=== PATIENT | female | born 1950 | race Caucasian/White ===

== ENCOUNTER 2019-11-28 15:11 | Emergency (ER) | payer MEDICARE ==
[~2019-11-28] VITALS: Ht 172.7 cm; Wt 95.2 kg
[~2019-11-28 15:11] MED LIST: ASPI81EC PO; BENAML20/5 PO; CALCA500CH PO; DESV50 PO; MELA3; MULVITA PO; OMEP20ER; OXYC10ER PO; OXYC20ER PO; PREG75; ROSU5 PO
[2019-11-28] MEDS ORDERED: CEFP200 PO (17:01)
[2019-11-28] MEDS ORDERED: ONDA4ODT MM (17:01)
[2019-11-28] MEDS ORDERED: Norco 10-325 T1 EACH PO (17:01)
== END 2019-11-28 17:50 | disposition home or self-care (01) ==
LOC: ER 15:11
DX: S51.811A Laceration without foreign body of right forearm, initial encounter (principal); Z88.0 Allergy status to penicillin; Z88.8 Allergy status to other drugs, medicaments and biological substances; Z79.899 Other long term (current) drug therapy; Z23 Encounter for immunization; W31.89XA Contact with other specified machinery, initial encounter
CPT/HCPCS: 12002; 73090; 90471; 90714; 96365-59; 96366-59; 96375-59; 99283-25; J0690; J2060; J2405; J3010; J7030

== ENCOUNTER → 2019-12-06 | Outpatient (CLI) | payer MEDICARE ==
[~2019-12-06] MED LIST changes: +CEFP200 PO; +Norco 10-325 T1 EACH PO; +ONDA4ODT MM
== END | disposition home or self-care (01) ==
LOC: LAB SHORT 12:00 → LAB EV 12:00
DX: S41.111A Laceration without foreign body of right upper arm, initial encounter (principal)
CPT/HCPCS: 87070; 87075; 87205

== ENCOUNTER 2020-06-02 10:03 | Emergency (ER) | payer MEDICARE ==
[~2020-06-02] VITALS: Ht 172.7 cm; Wt 90.7 kg
[2020-06-02] MEDS ORDERED: BENA20 PO (10:32)
[2020-06-02] MEDS ORDERED: CELE200 PO (10:32)
[2020-06-02] MEDS ORDERED: ATOR20 PO (10:32)
[2020-06-02] MEDS ORDERED: MELATONIN5 M1 PO (10:33)
[2020-06-02] MEDS ORDERED: VENL150ER PO (10:34)
[2020-06-02] MEDS ORDERED: OMEP20ER PO (10:34)
[2020-06-02 10:38] LABS: BASOPHILS ABSOLUTE AUTO 0.03 K/mm3 (0.00-0.23); BASOPHILS PERCENT AUTO 0 % (0-2); EOSINOPHILS ABSOLUTE AUTO 0.05 K/mm3 (0.00-0.68); EOSINOPHILS PERCENT AUTO 1 % (0-6); Hematocrit 41.7 % (33.0-51.0); Hemoglobin 13.9 g/dL (11.5-16.0); IMMATURE GRAN ABSOLUTE AUTO 0.02 K/mm3 (0.00-0.10); IMMATURE GRAN PERCENT AUTO 0 % (0-1); LYMPHOCYTES ABSOLUTE AUTO 1.36 K/mm3 (0.84-5.20); LYMPHOCYTES PERCENT AUTO 19 % (21-46); MONOCYTES PERCENT AUTO 7 % (4-13); Mean Corpuscular HGB 30.5 pg (26.0-34.0); Mean Corpuscular HGB Conc 33.3 g/dL (31.5-36.5); Mean Corpuscular Volume 91 fL (80-100); Mean Platelet Volume 10.7 fL (9.1-12.4); NEUTROPHILS PERCENT AUTO 73 % (41-73); Platelet Count 193 K/mm3 (150-400); RDW Coefficient Variation 13.4 % (11.7-14.2); RDW Standard Deviation 45.7 fL (35.1-46.3); Red Blood Cell Count 4.56 M/mm3 (3.80-5.20); White Blood Cell Count 7.36 K/mm3 (4.00-11.30)
[2020-06-02 10:59] LABS: Alanine Aminotransfer (ALT/SGP 23 U/L (12-78); Albumin, Blood 3.6 g/dL (3.4-5.0); Albumin/Globulin Ratio 1.1 (0.8-1.8); Alk Phos 87 U/L (50-136); Anion Gap 10 mmol/L (6-16); Aspartate Aminotrans (AST/SGOT 17 U/L (12-37); Bilirubin, Total 0.6 mg/dL (0.1-1.0); Blood Urea Nitrogen 26 mg/dL (8-24); Bun/Creatinine Ratio 25.2 (12.0-20.0); CO2, Blood 22 mmol/L (21-32); Chloride, Blood 112 mmol/L (98-108); Creatinine, Blood 1.03 mg/dL (0.40-1.00); Globulin, Blood 3.2 g/dL (2.2-4.0); Glomerular Filtration Rate 56 (60-); Glucose, Blood 89 mg/dL (70-99); Magnesium, Blood 1.9 mg/dL (1.6-2.4); Potassium, Blood 3.9 mmol/L (3.5-5.5); Sodium, Blood 144 mmol/L (136-145); Total Protein, Blood 6.8 g/dL (6.4-8.2); Troponin I <0.015 ng/mL (0.000-0.040)
== END 2020-06-02 18:54 | disposition home or self-care (01) ==
LOC: ER 10:03
PROVIDERS: Emergency Medicine
DX: R07.89 Other chest pain (principal); F03.90 Unspecified dementia, unspecified severity, without behavioral disturbance, psychotic disturbance, mood disturbance, and anxiety; E78.00 Pure hypercholesterolemia, unspecified; Z88.0 Allergy status to penicillin; Z88.8 Allergy status to other drugs, medicaments and biological substances; Z79.899 Other long term (current) drug therapy
CPT/HCPCS: 71046; 80053; 83690; 83735; 84484; 85025; 93005; 93010; 99285-25

== ENCOUNTER → 2020-06-03 | Outpatient (CLI) | payer MEDICARE ==
[~2020-06-03] MED LIST changes: +ATOR20 PO; +Ativan1 MG PO; +BENA20 PO; +CELE200 PO; +CIPR500 PO; +MELATONIN5 M1 PO; +OMEP20ER PO; +QUET25 PO; +VENL150ER PO
== END | disposition home or self-care (01) ==
LOC: LAB EV 11:48 → LAB SHORT 11:48
DX: R30.9 Painful micturition, unspecified (principal)
CPT/HCPCS: 87086

== ENCOUNTER 2020-06-06 12:30 | Emergency (ER) | payer MEDICARE ==
[~2020-06-06] VITALS: Ht 172.7 cm; Wt 55.3 kg
[~2020-06-06 12:30] MED LIST changes: -Ativan1 MG PO; -CIPR500 PO; -QUET25 PO
[2020-06-06] MEDS ORDERED: CIPR500 PO (12:57)
[2020-06-06] MEDS ORDERED: QUET25 PO (12:58)
[2020-06-06] MEDS ORDERED: Ativan1 MG PO (14:44)
== END 2020-06-06 14:54 | disposition home or self-care (01) ==
LOC: ER 12:30
DX: F41.9 Anxiety disorder, unspecified (principal); F03.90 Unspecified dementia, unspecified severity, without behavioral disturbance, psychotic disturbance, mood disturbance, and anxiety; Z88.0 Allergy status to penicillin; Z88.8 Allergy status to other drugs, medicaments and biological substances; Z79.899 Other long term (current) drug therapy
CPT/HCPCS: 99284; A9270

== ENCOUNTER → 2020-07-02 | Outpatient (CLI) | payer MEDICARE ==
[~2020-07-02] MED LIST changes: +Ativan1 MG PO; +CIPR500 PO; +QUET25 PO
== END | disposition home or self-care (01) ==
LOC: LAB SHORT 16:40
DX: N39.0 Urinary tract infection, site not specified (principal)
CPT/HCPCS: 87086

== ENCOUNTER 2020-08-05 21:33 | Emergency (ER) | payer MEDICARE ==
[~2020-08-05] VITALS: Ht 167.6 cm; Wt 74.8 kg
[2020-08-05 23:02] LABS: BASOPHILS ABSOLUTE AUTO 0.05 K/mm3 (0.00-0.23); BASOPHILS PERCENT AUTO 1 % (0-2); EOSINOPHILS ABSOLUTE AUTO 0.07 K/mm3 (0.00-0.68); EOSINOPHILS PERCENT AUTO 1 % (0-6); Hematocrit 39.2 % (33.0-51.0); Hemoglobin 12.6 g/dL (11.5-16.0); IMMATURE GRAN ABSOLUTE AUTO 0.02 K/mm3 (0.00-0.10); IMMATURE GRAN PERCENT AUTO 0 % (0-1); LYMPHOCYTES ABSOLUTE AUTO 1.65 K/mm3 (0.84-5.20); LYMPHOCYTES PERCENT AUTO 26 % (21-46); MONOCYTES ABSOLUTE AUTO 0.44 K/mm3 (0.16-1.47); MONOCYTES PERCENT AUTO 7 % (4-13); Mean Corpuscular HGB 30.7 pg (26.0-34.0); Mean Corpuscular HGB Conc 32.1 g/dL (31.5-36.5); Mean Corpuscular Volume 95 fL (80-100); NEUTROPHILS ABSOLUTE AUTO 4.02 K/mm3 (1.96-9.15); NEUTROPHILS PERCENT AUTO 64 % (41-73); Platelet Count 163 K/mm3 (150-400); RDW Coefficient Variation 14.5 % (11.7-14.2); RDW Standard Deviation 50.2 fL (35.1-46.3); Red Blood Cell Count 4.11 M/mm3 (3.80-5.20); White Blood Cell Count 6.25 K/mm3 (4.00-11.30)
[2020-08-06 00:01] LABS: Albumin, Blood 3.7 g/dL (3.4-5.0); Albumin/Globulin Ratio 1.4 (0.8-1.8); Bilirubin, Total 0.6 mg/dL (0.1-1.0); Bun/Creatinine Ratio 22.3 (12.0-20.0); Calcium, Blood 8.6 mg/dL (8.5-10.1); Creatinine, Blood 1.03 mg/dL (0.40-1.00); Globulin, Blood 2.7 g/dL (2.2-4.0); Potassium, Blood 3.4 mmol/L (3.5-5.5); Total Protein, Blood 6.4 g/dL (6.4-8.2)
[2020-08-06 01:29] LABS: Source, Urine Clean Catch
[2020-08-06 01:32] LABS: Bilirubin, Urine Neg (Neg); Blood, Urine 1+ (Neg); Glucose Qualitative, Urine Neg (Neg); Ketones, Urine 2+ (Neg); Leukocyte Esterase, Urine 2+ (Neg); Nitrite, Urine Neg (Neg); Protein, Urine 1+ (Neg); Urobilinogen, Urine 1+ (Normal)
[2020-08-06 01:42] LABS: Appearance, Urine Hazy (Clear); Color, Urine Yellow (P-Yellow)
[2020-08-06 01:43] LABS: Amorphous Light (0-Heavy); Bacteria Many /hpf; Mucus Mod (0-Heavy); Red Blood Cells, Urine Rare /hpf (0-2); Squamous Epithelial Cells Many /hpf (Few); White Blood Cells, Urine 25-50 /hpf (0-5)
== END 2020-08-06 01:49 | disposition home or self-care (01) ==
LOC: ER 21:33
PROVIDERS: Physician Assistant
DX: F03.90 Unspecified dementia, unspecified severity, without behavioral disturbance, psychotic disturbance, mood disturbance, and anxiety (principal); E78.00 Pure hypercholesterolemia, unspecified; Z79.899 Other long term (current) drug therapy; Z88.0 Allergy status to penicillin; Z88.8 Allergy status to other drugs, medicaments and biological substances
CPT/HCPCS: 80053; 81001; 85025; 87086; 99283

== ENCOUNTER 2021-02-28 14:38 | Emergency (ER) | payer MEDICARE ==
[~2021-02-28] VITALS: Ht 172.7 cm; Wt 63.5 kg
[2021-02-28] MEDS ORDERED: ZOLOFT50 MG PO (15:01)
[2021-02-28] MEDS ORDERED: TEMAZEPAM PO (15:01)
[2021-02-28 16:15] LABS: BASOPHILS ABSOLUTE AUTO 0.03 K/mm3 (0.00-0.23); BASOPHILS PERCENT AUTO 0 % (0-2); EOSINOPHILS ABSOLUTE AUTO 0.03 K/mm3 (0.00-0.68); EOSINOPHILS PERCENT AUTO 0 % (0-6); Hematocrit 36.1 % (33.0-51.0); IMMATURE GRAN ABSOLUTE AUTO 0.02 K/mm3 (0.00-0.10); IMMATURE GRAN PERCENT AUTO 0 % (0-1); LYMPHOCYTES ABSOLUTE AUTO 1.32 K/mm3 (0.84-5.20); LYMPHOCYTES PERCENT AUTO 18 % (21-46); MONOCYTES ABSOLUTE AUTO 0.51 K/mm3 (0.16-1.47); MONOCYTES PERCENT AUTO 7 % (4-13); Mean Corpuscular HGB Conc 33.2 g/dL (31.5-36.5); Mean Corpuscular Volume 99 fL (80-100); Mean Platelet Volume 10.8 fL (9.1-12.4); NEUTROPHILS ABSOLUTE AUTO 5.42 K/mm3 (1.96-9.15); NEUTROPHILS PERCENT AUTO 74 % (41-73); Platelet Count 143 K/mm3 (150-400); RDW Standard Deviation 55.9 fL (35.1-46.3); Red Blood Cell Count 3.64 M/mm3 (3.80-5.20); White Blood Cell Count 7.33 K/mm3 (4.00-11.30)
[2021-02-28 16:34] LABS: Alanine Aminotransfer (ALT/SGP 18 U/L (12-78); Albumin, Blood 3.3 g/dL (3.4-5.0); Albumin/Globulin Ratio 1.2 (0.8-1.8); Alk Phos 44 U/L (50-136); Anion Gap 9 mmol/L (6-16); Aspartate Aminotrans (AST/SGOT 20 U/L (12-37); Bilirubin, Total 0.6 mg/dL (0.1-1.0); Blood Urea Nitrogen 20 mg/dL (8-24); Bun/Creatinine Ratio 24.9 (12.0-20.0); CO2, Blood 22 mmol/L (21-32); Chloride, Blood 114 mmol/L (98-108); Globulin, Blood 2.8 g/dL (2.2-4.0); Glomerular Filtration Rate >60 (60-); Glucose, Blood 97 mg/dL (70-99); Magnesium, Blood 1.9 mg/dL (1.6-2.4); Potassium, Blood 3.9 mmol/L (3.5-5.5); Sodium, Blood 145 mmol/L (136-145); Total Protein, Blood 6.1 g/dL (6.4-8.2); Troponin I <0.015 ng/mL (0.000-0.040)
== END 2021-02-28 17:15 | disposition home or self-care (01) ==
LOC: ER 14:38
PROVIDERS: Student in an Organized Health Care Education/Training Program
DX: R55 Syncope and collapse (principal); E86.0 Dehydration; F41.9 Anxiety disorder, unspecified; Z88.0 Allergy status to penicillin; Z88.8 Allergy status to other drugs, medicaments and biological substances; Z79.899 Other long term (current) drug therapy; M19.90 Unspecified osteoarthritis, unspecified site; E78.00 Pure hypercholesterolemia, unspecified; F03.90 Unspecified dementia, unspecified severity, without behavioral disturbance, psychotic disturbance, mood disturbance, and anxiety
CPT/HCPCS: 36415; 71046; 80053; 82947; 83735; 83880; 84484; 85025; 93005; 93010; 99284-25; A9270; J7030

== ENCOUNTER 2021-07-28 13:43 | Inpatient (IN) | payer MEDICARE ==
[~2021-07-28] VITALS: Ht 172.7 cm; Wt 49.0 kg
[~2021-07-28 13:43] MED LIST changes: +TEMAZEPAM PO; +ZOLOFT50 MG PO
[2021-07-28 14:49] LABS: BASOPHILS ABSOLUTE AUTO 0.04 K/mm3 (0.00-0.23); BASOPHILS PERCENT AUTO 1 % (0-2); EOSINOPHILS ABSOLUTE AUTO 0.14 K/mm3 (0.00-0.68); EOSINOPHILS PERCENT AUTO 3 % (0-6); Hematocrit 38.6 % (33.0-51.0); Hemoglobin 12.7 g/dL (11.5-16.0); IMMATURE GRAN PERCENT AUTO 0 % (0-1); LYMPHOCYTES ABSOLUTE AUTO 1.55 K/mm3 (0.84-5.20); LYMPHOCYTES PERCENT AUTO 32 % (21-46); MONOCYTES ABSOLUTE AUTO 0.39 K/mm3 (0.16-1.47); MONOCYTES PERCENT AUTO 8 % (4-13); Mean Corpuscular HGB 31.1 pg (26.0-34.0); Mean Corpuscular HGB Conc 32.9 g/dL (31.5-36.5); Mean Corpuscular Volume 95 fL (80-100); Mean Platelet Volume 10.3 fL (9.1-12.4); NEUTROPHILS ABSOLUTE AUTO 2.67 K/mm3 (1.96-9.15); NEUTROPHILS PERCENT AUTO 56 % (41-73); Platelet Count 217 K/mm3 (150-400); RDW Coefficient Variation 12.9 % (11.7-14.2); RDW Standard Deviation 44.1 fL (35.1-46.3); Red Blood Cell Count 4.08 M/mm3 (3.80-5.20); White Blood Cell Count 4.79 K/mm3 (4.00-11.30)
[2021-07-28 15:26] LABS: Alanine Aminotransfer (ALT/SGP 24 U/L (12-78); Albumin, Blood 3.6 g/dL (3.4-5.0); Alk Phos 73 U/L (50-136); Anion Gap 7 mmol/L (6-16); Aspartate Aminotrans (AST/SGOT 22 U/L (12-37); Bilirubin, Total 0.5 mg/dL (0.1-1.0); Blood Urea Nitrogen 25 mg/dL (8-24); Bun/Creatinine Ratio 33.1 (12.0-20.0); CO2, Blood 26 mmol/L (21-32); Calcium, Blood 9.2 mg/dL (8.5-10.1); Chloride, Blood 109 mmol/L (98-108); Creatinine, Blood 0.76 mg/dL (0.40-1.00); Globulin, Blood 3.6 g/dL (2.2-4.0); Glomerular Filtration Rate >60 (60-); Glucose, Blood 100 mg/dL (70-99); Potassium, Blood 3.6 mmol/L (3.5-5.5); Sodium, Blood 142 mmol/L (136-145); Total Protein, Blood 7.2 g/dL (6.4-8.2)
--- NOTE | 2021-07-29 04:35 | NUR ---
PT A & O TO SELF AND SITUATION. PT CONFUSED AT TIMES. HX OF DEMENTIA. NPO. BEDREST. IV TO R) WRIST; NS INFUSING AT 100 ML/HR PER ORDER. PT C/O HIP PAIN AND LOOKED ANXIOUS AND FEARFUL. PT GIVEN PRN FENTANYL IV FOR PAIN AND PO ATIVAN FOR ANXIETY PER EMAR. MEDS WHOLE WITH WATER. ORTHO CONSULT IN. WILL CONTINUE TO MONITOR.
--- NOTE | 2021-07-29 04:38 | NUR ---
PT ADMITTED FROM ER TO ROOM 309 ON 07/28/21 AT 2300. PT MOANING AND IN DISTRESS. PT C/O PAIN. PT ANXIOUS WELL. HIP PRECAUTIONS INITIATED. NO IV PRESENT. REPORT RECEIVED FROM ASCENCION LICONA RN.
[2021-07-29 05:09] LABS: BASOPHILS ABSOLUTE AUTO 0.06 K/mm3 (0.00-0.23); BASOPHILS PERCENT AUTO 1 % (0-2); EOSINOPHILS ABSOLUTE AUTO 0.15 K/mm3 (0.00-0.68); EOSINOPHILS PERCENT AUTO 3 % (0-6); Hematocrit 34.1 % (33.0-51.0); Hemoglobin 11.3 g/dL (11.5-16.0); IMMATURE GRAN ABSOLUTE AUTO 0.01 K/mm3 (0.00-0.10); IMMATURE GRAN PERCENT AUTO 0 % (0-1); LYMPHOCYTES ABSOLUTE AUTO 1.88 K/mm3 (0.84-5.20); LYMPHOCYTES PERCENT AUTO 41 % (21-46); MONOCYTES ABSOLUTE AUTO 0.44 K/mm3 (0.16-1.47); MONOCYTES PERCENT AUTO 10 % (4-13); Mean Corpuscular HGB Conc 33.1 g/dL (31.5-36.5); Mean Corpuscular Volume 93 fL (80-100); NEUTROPHILS ABSOLUTE AUTO 2.09 K/mm3 (1.96-9.15); NEUTROPHILS PERCENT AUTO 45 % (41-73); Platelet Count 180 K/mm3 (150-400); RDW Coefficient Variation 12.8 % (11.7-14.2); RDW Standard Deviation 43.9 fL (35.1-46.3); Red Blood Cell Count 3.65 M/mm3 (3.80-5.20); White Blood Cell Count 4.63 K/mm3 (4.00-11.30)
[2021-07-29 05:37] LABS: Alanine Aminotransfer (ALT/SGP 20 U/L (12-78); Albumin/Globulin Ratio 1.1 (0.8-1.8); Alk Phos 67 U/L (50-136); Anion Gap 6 mmol/L (6-16); Aspartate Aminotrans (AST/SGOT 16 U/L (12-37); Bilirubin, Total 0.5 mg/dL (0.1-1.0); Blood Urea Nitrogen 22 mg/dL (8-24); Bun/Creatinine Ratio 30.7 (12.0-20.0); CO2, Blood 26 mmol/L (21-32); Calcium, Blood 8.7 mg/dL (8.5-10.1); Chloride, Blood 113 mmol/L (98-108); Creatinine, Blood 0.72 mg/dL (0.40-1.00); Globulin, Blood 2.8 g/dL (2.2-4.0); Glomerular Filtration Rate >60 (60-); Glucose, Blood 91 mg/dL (70-99); Potassium, Blood 3.3 mmol/L (3.5-5.5); Sodium, Blood 145 mmol/L (136-145); Total Protein, Blood 5.8 g/dL (6.4-8.2)
--- NOTE | 2021-07-29 11:00 | NUR ---
CALLED FLOOR RN, REPORTS IV PULLED X2, WILL RESTART BEFORE HEADING BACK TO OR. NO COVID TEST ON CHART, PT'S FAMILY REPORTS VACCINATED BUT DOESN'T HAVE A COPY OF CARD, ORDERED STAT COVID TEST. FLOOR RN WILL OBTAIN NOW. NO ABX HAVE BEEN ORDERED PRE-OP, ORDERS PLACED ON CHART FOR DR. OSUNA.
--- NOTE | 2021-07-29 11:56 | NUR ---
NURSE NOTE PATIENT PULLED OUT IV THIS SHIFT. ATTEMPTED NEW IV START. DAY SURGERY CALLED AND CONFIRMED THEY WILL PUT IN NEW IV CLOSER TO SURGERY. PATIENT TRANSFERRED TO DAY SURGERY VIA BED. UNSURE IF PATIENT WILL TRANSFER BACK TO ROOM. PATIENT HAS HAD NO ACUTE EVENTS THIS SHIFT. VITAL SIGNS REVIEWED.
--- NOTE | 2021-07-29 12:06 | NUR ---
PT TO SDS FROM ROOM 309 VIA GURNEY. PT ABLE TO STAND AND USE COMMODE PRIOR TO SDS. IV STARTED. S/O REPORTS NPO SINCE LAST NOC. History, Chart, Medications and Allergies reviewed before start of procedure. Lungs clear T/O to Auscultation. INCREASED NECK PAIN, REPOSITIONED FOR COMFORT. AT BEDSIDE FOR CONSENT. SBAR TO ZAKIYA DOW .
[2021-07-29 12:35] LABS: SARS-Cov-2 (COVID-19) PCR, MMC NEGATIVE (NEGATIVE)
--- NOTE | 2021-07-29 13:56 | NUR ---
07/29/21 1356 Maurice Milan BRUISING FOUND ON PT INCLUDING RIGHT HIP AND RIGHT EYE.
--- NOTE | 2021-07-29 16:34 | NUR ---
SHIFT SUMMARY PT TRANSFERRED FROM 309 TO 214 POST SURGERY. PT STATUS POST FOR PINNING OF R HIP FOLLOWING A FALL AT HOME. PT HAS DEMENTIA BUT IS ABLE TO ANSWER SIMPLE QUESTIONS. GAUZE DRESSING TO R HIP CDI. AT THE BEDSIDE. VSS. IV WRAPPED TO KEEP PATIENT FROM PULLING IT OUT.
--- NOTE | 2021-07-30 05:39 | NUR ---
JITNEY DRIVER SUMMARY PATIENT A&O X2 BUT COOPERATIVE. VSS. SHE REFUSED PAIN MEDICATION AND DENIED PAIN, EXCEPT WHEN TRANSFERING TO BSC. PATIENT WAS ABLE TO VOID 300 ML OF DARK, CLOUDY, ODEROUS URINE. INCISION SITE C/D/I WITH SCANT DRAINAGE. PATIENT SLEPT MOST OF THE SHIFT. NO OTHER ACUTE CHANGES THIS SHIFT.
--- NOTE | 2021-07-30 11:02 | NUR ---
Pt. is awake and in bed. Pt. welcomes my visit. Pt. is pleasant, but mildly unsettled about her recovery status. With a calming presence and theraputic listening this juke box mechanic devlopes rapport with Pt. Pt. verbalizes that she desired to get an update from her medical team. Normalize the Pt. experience. Pt. displays evidence of trust and agreement. Prayed with Pt. Pt. verbalizes gratitude for the [facility].
--- NOTE | 2021-07-30 17:39 | NUR ---
SHIFT SUMMARY PT POD #1 FOR R HIP GAMMA NAILING. SHE IS WEIGHT BEARING TOLERATED TO THE BSC. SHE HAS DEMENTIA AND CAN BE CONFUSED BUT OVERALL IS PLEASANT. STERI STRIPD TO THE R HIP CDI. IS AT THE BEDSIDE WHICH HELPS WITH HER ANXIETY AND AGITATION. MEDICATED FOR PAIN THIS SHIFT PER EMR. VSS. WILL REPORT TO KELLIE RN.
--- NOTE | 2021-07-31 05:47 | NUR ---
PT A&O X2. VSS. PT SLIGHTLY AGITATED AT START OF SHIFT. SHE WAS MEDICATED WITH ATIVAN AND SEROQUIL, PER EMAR. STAYED AT BEDSIDE FOR SEVERAL HOURS TO COMFORT PT. PT HAS BEEN CALM AND COOPERATIVE SINCE. PT HAD A LOW GRADE FEVER EARLY IN SHIFT. SHE WAS MEDICATED WITH TYLENOL, AND HER TEMPERATURE RETURNED TO WNL. INCISION ON R HIP C/D/I WITHOUT DRAINAGE. NO OTHER ACUTE CHANGES THIS SHIFT.
--- NOTE | 2021-07-31 15:08 | NUR ---
SHIFT SUMMARY POD 2 RIGHT HIP NAILING PATIENT IS AXOX2 CAN BE MORE CONFUSED IN THE EVENING. BED ALARM AND TAB ALARM ARE ON. VS ARE WNL AND IS ON RA. PAIN IS MANAGED WITH PO TYLENOL. SHE IS A SBA WITH FWW AND GAIT BELT. RIGHT HIP HAS BANDAID THAT IS C/D/I. DENIES NUMBNESS AND TINGLING. SHE IS TOLERATING PO INTAKE AND IS VOIDING. ENCOURAGING BOWEL CARE AND INCREASING PO FLUIDS TO HOPEFULLY HAVE A BM. PATIENT IS CURRENTLY SITTING UP IN CHAIR WITH TAB ALARM ON. CALL LIGHT WITHIN REACH. SON AT BEDSIDE. THE PLAN IS TO CHECK LABS IN THE MORNING AND THEN TO POSSIBLY DISCHARGE TO SNF WHEN A BED BECOMES OPEN.
--- NOTE | 2021-07-31 16:12 | NUR ---
DISCHARGE NOTE: PATIENT WILL BE GOING TO [facility] TODAY. GAVE REPORT TO [facility] NURSE IGNACIA. PATIENT IS A&OX2 BUT IS COOPERATIVE. TAB ALARM IN PLACE AT THIS TIME SINCE SHE IS UP IN A CHAIR. HARD PERSCRIPTION IS IN FOLDER THAT WILL BE GOING TO [facility]. RIGHT HIP HAS A BANDAID OVER SURGICAL SITE THAT IS C/D/I. DENIES NUMBNESS AND TINGLING. SHE IS A SBA WITH FWW AND GAIT BELT. SHE IS TOLERATING PO INTAKE, VOIDING, AND HAD A SMALL SMEAR BM. FAMILY IS AWARE OF PATIENT GOING TO [facility]. SON AT BEDSIDE. CALL LIGHT WITHIN REACH. AWAITING TRANSPORT TO ARRIVE AT 1800 TO TAKE HER TO [facility].
--- NOTE | 2021-07-31 16:34 | NUR ---
SEE NEW DISCHARGE NOTE IN NURSES NOTES. PATIENT IS TO BE GOING TO [facility] WHEN TRANSPORT GETS HERE AT 1800.
[2021-07-31 16:42] LABS: SARS-Cov-2 (COVID-19) PCR, MMC NEGATIVE (NEGATIVE)
--- NOTE | 2021-07-31 18:03 | NUR ---
PATIENT IS DRESSED AND HAS ITEMS GATHERED FROM THE ROOM. TRANSPORT ARRIVED AND PATIENT IS IN A WHEELCHAIR AND GETTING TRANSPORTED TO [facility].
== END 2021-07-31 18:00 | DRG 956 ==
LOC: ER 13:43 → SURS 21:56 → MEDS 21:56 → SURS 07-29 13:12
PROVIDERS: Family Medicine; Internal Medicine; Orthopaedic Surgery; Physician Assistant; ADMIT Internal Medicine
PROC: 0QH634Z Insertion of Internal Fixation Device into Right Upper Femur, Percutaneous Approach (ICD-10-PCS; principal; 2021-07-29 12:30)
DX: S72.001A Fracture of unspecified part of neck of right femur, initial encounter for closed fracture (principal); S06.6X0A Traumatic subarachnoid hemorrhage without loss of consciousness, initial encounter; Z66 Do not resuscitate; G30.9 Alzheimer's disease, unspecified; F02.80 Dementia in other diseases classified elsewhere, unspecified severity, without behavioral disturbance, psychotic disturbance, mood disturbance, and anxiety; E87.6 Hypokalemia; Z20.822 Contact with and (suspected) exposure to COVID-19; M19.90 Unspecified osteoarthritis, unspecified site; E78.00 Pure hypercholesterolemia, unspecified; G89.29 Other chronic pain; F41.9 Anxiety disorder, unspecified; Z87.820 Personal history of traumatic brain injury; Z98.41 Cataract extraction status, right eye; Z98.42 Cataract extraction status, left eye; Z98.890 Other specified postprocedural states; Z88.0 Allergy status to penicillin; Z88.8 Allergy status to other drugs, medicaments and biological substances; Z79.899 Other long term (current) drug therapy; W18.39XA Other fall on same level, initial encounter
CPT/HCPCS: 36415; 73700; 80053; 85025; 97112; 97116; 97162; 97165; 97535; 99285-25; A9270; C1713; C1769; J0171; J0690; J1100; J1885; J2250; J2405; J2704; J3010; J7030; J7120; U0004

== ENCOUNTER 2022-09-14 13:02 | Observation (INO) | payer MEDICARE ==
[2022-09-14 15:20] LABS: BASOPHILS ABSOLUTE AUTO 0.03 K/mm3 (0.00-0.23); BASOPHILS PERCENT AUTO 0 % (0-2); EOSINOPHILS PERCENT AUTO 1 % (0-6); Hematocrit 38.4 % (33.0-51.0); Hemoglobin 12.8 g/dL (11.5-16.0); IMMATURE GRAN ABSOLUTE AUTO 0.02 K/mm3 (0.00-0.10); IMMATURE GRAN PERCENT AUTO 0 % (0-1); LYMPHOCYTES ABSOLUTE AUTO 1.17 K/mm3 (0.84-5.20); LYMPHOCYTES PERCENT AUTO 13 % (21-46); MONOCYTES ABSOLUTE AUTO 0.63 K/mm3 (0.16-1.47); MONOCYTES PERCENT AUTO 7 % (4-13); Mean Corpuscular HGB 30.9 pg (26.0-34.0); Mean Corpuscular HGB Conc 33.3 g/dL (31.5-36.5); Mean Corpuscular Volume 93 fL (80-100); Mean Platelet Volume 10.5 fL (9.1-12.4); NEUTROPHILS ABSOLUTE AUTO 7.27 K/mm3 (1.96-9.15); NEUTROPHILS PERCENT AUTO 79 % (41-73); Platelet Count 168 K/mm3 (150-400); RDW Coefficient Variation 12.4 % (11.7-14.2); RDW Standard Deviation 42.5 fL (35.1-46.3); Red Blood Cell Count 4.14 M/mm3 (3.80-5.20); White Blood Cell Count 9.22 K/mm3 (4.00-11.30)
[2022-09-14 15:44] LABS: Albumin, Blood 3.3 g/dL (3.4-5.0); Albumin/Globulin Ratio 0.9 (0.8-1.8); Bilirubin, Total 0.4 mg/dL (0.1-1.0); Bun/Creatinine Ratio 21.7 (12.0-20.0); Calcium, Blood 9.1 mg/dL (8.5-10.1); Creatinine, Blood 1.06 mg/dL (0.40-1.00); Globulin, Blood 3.6 g/dL (2.2-4.0); Total Protein, Blood 6.9 g/dL (6.4-8.2)
--- NOTE | 2022-09-14 16:45 | NUR ---
REVIEWED PT CHART FOR ADMISSION
[2022-09-14 18:00] VITALS: BP 143/75
--- NOTE | 2022-09-14 18:48 | NUR ---
ER ADMIT Patient had glf & subarchnoid bleed. Vitals stable, plan to re-check head CT at 2130. Patient has tremors at baseline. Left arm in a sling, severly painful d/t fall. PRN oxycodone given for pain. Will continue plan of care.
[2022-09-14 19:37] VITALS: BP 130/69
[2022-09-15 05:17] VITALS: BP 122/68
--- NOTE | 2022-09-15 07:17 | NUR ---
Shift Summary Pt had a repeat CT scheduled for 2129. During assessment I found she had blurry vision which pt and spouse stated wasn't normal. Called hospitalist who ordered stat CT. CT showed no no progression of hemorrage. Q4 neuro checks, pupils WNL, no headache, dizzyniss or nausea t/o shift. Pt denies pain, states she is keeping her L fx shoulder still and it doesn't hurt. This AM bladder scan revealed 965 mL, Dr. Victoria ordered Schwartz cathereter which was placed and is currently draining to gravity. Pt awoke confused unsure where she was and not remembering how she got her, I was able to reorient over 10 minutes. Pt currently on bedrest pending PT mayraal.
[2022-09-15 07:45] VITALS: BP 134/74
[2022-09-15 08:14] LABS: BASOPHILS ABSOLUTE AUTO 0.03 K/mm3 (0.00-0.23); BASOPHILS PERCENT AUTO 1 % (0-2); EOSINOPHILS ABSOLUTE AUTO 0.14 K/mm3 (0.00-0.68); EOSINOPHILS PERCENT AUTO 2 % (0-6); Hematocrit 37.6 % (33.0-51.0); Hemoglobin 12.6 g/dL (11.5-16.0); IMMATURE GRAN ABSOLUTE AUTO 0.02 K/mm3 (0.00-0.10); IMMATURE GRAN PERCENT AUTO 0 % (0-1); LYMPHOCYTES ABSOLUTE AUTO 1.31 K/mm3 (0.84-5.20); LYMPHOCYTES PERCENT AUTO 20 % (21-46); MONOCYTES ABSOLUTE AUTO 0.64 K/mm3 (0.16-1.47); MONOCYTES PERCENT AUTO 10 % (4-13); Mean Corpuscular HGB 30.8 pg (26.0-34.0); Mean Corpuscular HGB Conc 33.5 g/dL (31.5-36.5); Mean Corpuscular Volume 92 fL (80-100); Mean Platelet Volume 10.7 fL (9.1-12.4); NEUTROPHILS ABSOLUTE AUTO 4.36 K/mm3 (1.96-9.15); NEUTROPHILS PERCENT AUTO 67 % (41-73); Platelet Count 141 K/mm3 (150-400); RDW Coefficient Variation 12.6 % (11.7-14.2); RDW Standard Deviation 42.4 fL (35.1-46.3); Red Blood Cell Count 4.09 M/mm3 (3.80-5.20)
[2022-09-15 08:27] LABS: Albumin, Blood 3.1 g/dL (3.4-5.0); Anion Gap 5 mmol/L (6-16); Blood Urea Nitrogen 23 mg/dL (8-24); Bun/Creatinine Ratio 20.9 (12.0-20.0); CO2, Blood 23 mmol/L (21-32); Calcium, Blood 8.8 mg/dL (8.5-10.1); Chloride, Blood 113 mmol/L (98-108); Glomerular Filtration Rate 53 (60-); Glucose, Blood 99 mg/dL (70-99); Magnesium, Blood 2.1 mg/dL (1.6-2.4); Phosphorus, Blood 3.3 mg/dL (2.5-4.9); Sodium, Blood 141 mmol/L (136-145)
--- NOTE | 2022-09-15 15:16 | NUR ---
DAYSHIFT SUMMARY Patient alert & oriented x1-2, pleasant & cooperative. Unsure of place/situation. PT/OT worked with patient, ambulating w/ 1xSBA & hemiwalker. Urinary retention, unable to void, placed wilson catheter this morning. Wilson draining to gravity. Pallilative care consulted & patient changed POLST status. Plan to remain in hospital, pending therapy recommendation. Vitals stable, will continue plan of care.
[2022-09-15 15:51] VITALS: BP 137/68
--- NOTE | 2022-09-15 17:05 | NUR ---
Upon receiving a referal for spiritual care, I visited the patient. Her spouse and son are present. Patient answers simple questions, but just looks at me if the questions are to deep or complicated. Pt's spouse, talks at length about his healing activities and good support. He also shares about patient's [employer] background and that patient may welcome prayer, Which she does. I gladly provide prayer and therapeutic listening. Patient and family responded well and showed signs of being encouraged and uplifted in the long medical suffering.
--- NOTE | 2022-09-15 17:17 | NUR ---
Spoke to pt's Gregory today, and he expresses his concern about pt's health decline. He states he asked for hospice eval for her "a few years ago" but she didn't qualify at that time. According to her current H and P, pt has had new injuries from latest fall including L humerus surgical neck fracture. She has a hx of Lewy body dementia, and anxiety. Pt's has been caring for her at home. Plan to meet with him and pt at her bedside in the am to further discuss goals of care.
[2022-09-15 19:32] VITALS: BP 141/69
--- NOTE | 2022-09-16 04:10 | NUR ---
SHIFT SUMMARY PATIENT AXO X 1-2 WITH CONFUSION NOT REMEMBERING WHY SHE IS HERE. REPORTED HER VISION WAS OKAY BUT NEXT REPORTED IT WAS BLURRY TRYING TO READ WHITE BOARD IN ROOM. REPORTED LEFT ARM PAIN X TWO AND OXYCODONE 5 MG GIVEN FOR EACH EVENT. PATIENT ABLE TO SLEEP WITH PAIN MANAGEMENT. PIV REMAINS INTACT. VSS/AFEBRILE. DENIES CHEST PAIN, SOB, AND N/V. LEDBETTER PATENT AND DRAINING TO GRAVITY. CALL LIGHT IN REACH. BED IN LOWEST POSITION. WILL CONTINUE TO MONITOR UNTIL DAY SHIFT NURSE ASSUMES CARE.
[2022-09-16 06:24] LABS: Albumin, Blood 3.1 g/dL (3.4-5.0); Anion Gap 7 mmol/L (6-16); Blood Urea Nitrogen 25 mg/dL (8-24); Bun/Creatinine Ratio 23.4 (12.0-20.0); CO2, Blood 22 mmol/L (21-32); Calcium, Blood 8.6 mg/dL (8.5-10.1); Chloride, Blood 109 mmol/L (98-108); Creatinine, Blood 1.07 mg/dL (0.40-1.00); Glomerular Filtration Rate 55 (60-); Glucose, Blood 103 mg/dL (70-99); Phosphorus, Blood 3.5 mg/dL (2.5-4.9); Potassium, Blood 4.1 mmol/L (3.5-5.5); Sodium, Blood 138 mmol/L (136-145)
[2022-09-16 07:51] VITALS: BP 118/79
[2022-09-16] MEDS ORDERED: ACET500 PO (16:11)
[2022-09-16] MEDS ORDERED: OXYC5 PO (16:11)
--- NOTE | 2022-09-16 17:44 | NUR ---
Met with pt's and CG today regarding hospice questions. Pt's states he would like the extra support, and wonders if pt is ready for hospice. They request [facility] specifically, and I explained that it wouldn't hurt to eval with hospice, and they will be able to decide if pt is in fact, hospice appropriate. They v/u.
--- NOTE | 2022-09-16 19:03 | NUR ---
SHIFT SUMMARY PT DISCHARGED TO HOME WITH HOME HEALTH AND HOSPICE CONSULT TO HAPPEN AT PT'S HOME. PT'S SPOUSE TO VALUE ENGINEER HEMIWALKER AND MEDICATIONS ON THE WAY HOME. PT LEFT ROOM VIA WHEELCHAIR 1705 WITH CHESS INSTRUCTOR ESCORT. PT BLADDER TRAINED AND THEN LEDBETTER DC'D AND PT WAS ABLE TO VOID PRIOR TO GOING HOME. IV DC'D AND BELONGINGS RETURNED.
== END 2022-09-16 17:08 | disposition hospice, home (50) ==
LOC: ER 13:02 → MEDS 13:03
PROVIDERS: Emergency Medicine; ADMIT Family Medicine
DX: S06.6X0A Traumatic subarachnoid hemorrhage without loss of consciousness, initial encounter (principal); S42.212A Unspecified displaced fracture of surgical neck of left humerus, initial encounter for closed fracture; G31.83 Neurocognitive disorder with Lewy bodies; F02.80 Dementia in other diseases classified elsewhere, unspecified severity, without behavioral disturbance, psychotic disturbance, mood disturbance, and anxiety; E78.00 Pure hypercholesterolemia, unspecified; Z66 Do not resuscitate; Z86.73 Personal history of transient ischemic attack (TIA), and cerebral infarction without residual deficits; Z88.0 Allergy status to penicillin; Z88.8 Allergy status to other drugs, medicaments and biological substances; Z79.899 Other long term (current) drug therapy; W18.09XA Striking against other object with subsequent fall, initial encounter
CPT/HCPCS: 36415; 51702; 70450; 70486; 72125; 73060; 73560-LT; 80053; 80069; 83735; 85025; 96374; 96376; 97110; 97116; 97162; 97166; 97530; 97535; 99285-25; A9270; G0378; J2270

== ENCOUNTER → 2022-11-12 | Outpatient (CLI) | payer MEDICARE ==
[~2022-11-12] MED LIST changes: +ACET500 PO; +OXYC5 PO
[2022-11-12 19:57] LABS: Bilirubin, Urine Neg (Neg); Blood, Urine 1+ (Neg); Glucose Qualitative, Urine Neg (Neg); Ketones, Urine Neg (Neg); Leukocyte Esterase, Urine 3+ (Neg); Nitrite, Urine Pos (Neg); Protein, Urine 1+ (Neg); Urobilinogen, Urine NORM (Normal)
[2022-11-12 19:59] LABS: Appearance, Urine Hazy (Clear); Color, Urine Yellow (P-Yellow)
[2022-11-12 20:05] LABS: Amorphous Light (0-Heavy); Bacteria Many /hpf; Calcium Oxalate Crystals Few /hpf; Mucus Light (0-Heavy); Squamous Epithelial Cells Few /hpf (Few); White Blood Cells, Urine 25-50 /hpf (0-5)
== END | disposition home or self-care (01) ==
LOC: LAB SHORT 14:05 → LAB 14:05
PROVIDERS: Psychiatry & Neurology Neurology
DX: R41.0 Disorientation, unspecified (principal)
CPT/HCPCS: 81001; 87077; 87086; 87186

== ENCOUNTER → 2023-06-30 | Outpatient (CLI) | payer MEDICARE ==
[~2023-06-30] MED LIST changes: +FAMO20 PO
[2023-06-30 12:28] LABS: BASOPHILS ABSOLUTE AUTO 0.03 K/mm3 (0.00-0.23); BASOPHILS PERCENT AUTO 1 % (0-2); EOSINOPHILS ABSOLUTE AUTO 0.04 K/mm3 (0.00-0.68); EOSINOPHILS PERCENT AUTO 1 % (0-6); Hemoglobin 15.1 g/dL (11.5-16.0); IMMATURE GRAN ABSOLUTE AUTO 0.02 K/mm3 (0.00-0.10); IMMATURE GRAN PERCENT AUTO 0 % (0-1); LYMPHOCYTES ABSOLUTE AUTO 1.35 K/mm3 (0.84-5.20); LYMPHOCYTES PERCENT AUTO 23 % (21-46); MONOCYTES ABSOLUTE AUTO 0.36 K/mm3 (0.16-1.47); MONOCYTES PERCENT AUTO 6 % (4-13); Mean Corpuscular HGB 31.3 pg (26.0-34.0); Mean Corpuscular HGB Conc 32.8 g/dL (31.5-36.5); Mean Corpuscular Volume 95 fL (80-100); Mean Platelet Volume 10.8 fL (9.1-12.4); NEUTROPHILS ABSOLUTE AUTO 4.09 K/mm3 (1.96-9.15); NEUTROPHILS PERCENT AUTO 70 % (41-73); Platelet Count 149 K/mm3 (150-400); RDW Coefficient Variation 13.2 % (11.7-14.2); RDW Standard Deviation 46.5 fL (35.1-46.3); Red Blood Cell Count 4.83 M/mm3 (3.80-5.20); White Blood Cell Count 5.89 K/mm3 (4.00-11.30)
[2023-06-30 12:46] LABS: Albumin, Blood 4.3 g/dL (3.4-5.0); Albumin/Globulin Ratio 1.3 (0.8-1.8); Bilirubin, Total 0.6 mg/dL (0.1-1.0); Bun/Creatinine Ratio 22.3 (12.0-20.0); Calcium, Blood 9.4 mg/dL (8.5-10.1); Creatinine, Blood 1.03 mg/dL (0.40-1.00); Globulin, Blood 3.4 g/dL (2.2-4.0); Potassium, Blood 3.6 mmol/L (3.5-5.5); Total Protein, Blood 7.7 g/dL (6.4-8.2)
== END | disposition home or self-care (01) ==
LOC: LAB 12:22 → LAB SHORT 12:22
PROVIDERS: Emergency Medicine
DX: R10.9 Unspecified abdominal pain (principal); R39.15 Urgency of urination
CPT/HCPCS: 80053; 83605; 83690; 85025; 87086

== ENCOUNTER 2023-07-09 09:11 | Emergency (ER) | payer MEDICARE ==
[~2023-07-09] VITALS: Ht 167.6 cm; Wt 81.7 kg
[2023-07-09 12:00] VITALS: BP 140/74
== END 2023-07-09 12:28 | disposition home or self-care (01) ==
LOC: ER 09:11
DX: R55 Syncope and collapse (principal); S70.01XA Contusion of right hip, initial encounter; H53.8 Other visual disturbances; R51.9 Headache, unspecified; W19.XXXA Unspecified fall, initial encounter; Y92.000 Kitchen of unspecified non-institutional (private) residence as the place of occurrence of the external cause; Z88.0 Allergy status to penicillin; Z88.8 Allergy status to other drugs, medicaments and biological substances; Z79.899 Other long term (current) drug therapy
CPT/HCPCS: 70450; 73502; 82947; 93005; 93010; 99284-25

== ENCOUNTER → 2023-09-08 | Outpatient (CLI) | payer MEDICARE ==
[2023-09-08 14:19] LABS: Source, Urine Clean Catch
[2023-09-08 15:16] LABS: Appearance, Urine Hazy (Clear); Color, Urine Orange (P-Yellow); Specific Gravity, Urine 1.015 (1.003-1.022)
[2023-09-08 15:18] LABS: Glucose Qualitative, Urine Neg (Normal); Ketones, Urine Neg (Neg); Urobilinogen, Urine 3+ (Normal)
[2023-09-08 15:21] LABS: Blood, Urine Neg (Neg)
[2023-09-08 15:30] LABS: Bacteria Many /hpf; Calcium Oxalate Crystals Many /hpf; Red Blood Cells, Urine Not Seen /hpf (0-2); Renal Epithelial Few /hpf (0-Rare); Squamous Epithelial Cells Many /hpf (Few); White Blood Cells, Urine TNTC /hpf (0-5)
[2023-09-08 15:31] LABS: Leukocyte Esterase, Urine 2+ (Neg)
== END | disposition home or self-care (01) ==
LOC: LAB SHORT 09:15 → LAB 09:15
PROVIDERS: Physician Assistant Surgical
DX: R30.0 Dysuria (principal)
CPT/HCPCS: 81001

== ENCOUNTER 2023-09-19 19:31 | Emergency (ER) | payer MEDICARE ==
[~2023-09-19] VITALS: Ht 177.8 cm; Wt 83.9 kg
[2023-09-19] MEDS ORDERED: Acetaminophen 325 MG TABLET PO ONE (20:05)
[2023-09-19 20:15] VITALS: BP 138/85
== END 2023-09-19 20:45 | disposition home or self-care (01) ==
LOC: ER 19:31
DX: N39.0 Urinary tract infection, site not specified (principal); W18.30XA Fall on same level, unspecified, initial encounter; Z88.0 Allergy status to penicillin; Z88.8 Allergy status to other drugs, medicaments and biological substances; Z79.899 Other long term (current) drug therapy
CPT/HCPCS: 99283; A9270

== ENCOUNTER → 2023-10-06 | Outpatient (CLI) | payer MEDICARE | END | disposition home or self-care (01) | LOC: LAB 14:35 → LAB SHORT 14:35 | DX: N39.0 Urinary tract infection, site not specified (principal) | CPT/HCPCS: 87077; 87086; 87186 ==

== ENCOUNTER → 2024-04-16 | Outpatient (CLI) | payer MEDICARE | END | disposition home or self-care (01) | LOC: LAB 15:56 → LAB SHORT 15:56 | DX: N39.0 Urinary tract infection, site not specified (principal) | CPT/HCPCS: 87077; 87086; 87186 ==

== ENCOUNTER → 2024-05-04 | Outpatient (CLI) | payer MEDICARE | END | disposition home or self-care (01) | LOC: LAB SHORT 14:04 → LAB 14:04 | DX: R30.0 Dysuria (principal) | CPT/HCPCS: 87086 ==

== ENCOUNTER 2024-07-16 18:07 | Emergency (ER) | payer MEDICARE ==
[~2024-07-16] VITALS: Ht 167.6 cm; Wt 72.6 kg
[2024-07-16] MEDS ORDERED: Ketorolac Tromethamine 30mg Vial IV ONE (18:20)
[2024-07-16] MEDS ORDERED: Ondansetron HCl 2 MG / ML 2ML Vial IV ONE (18:20)
[2024-07-16] MEDS ORDERED: Lactated Ringer's 1,000 ML IV ONE (18:20)
[2024-07-16 19:13] LABS: Source, Urine Straight Cath
[2024-07-16 19:29] LABS: BASOPHILS ABSOLUTE AUTO 0.03 K/mm3 (0.00-0.23); BASOPHILS PERCENT AUTO 0 % (0-2); EOSINOPHILS PERCENT AUTO 1 % (0-6); Hematocrit 37.5 % (33.0-51.0); Hemoglobin 12.2 g/dL (11.5-16.0); IMMATURE GRAN ABSOLUTE AUTO 0.02 K/mm3 (0.00-0.10); IMMATURE GRAN PERCENT AUTO 0 % (0-1); LYMPHOCYTES ABSOLUTE AUTO 1.36 K/mm3 (0.84-5.20); LYMPHOCYTES PERCENT AUTO 19 % (21-46); MONOCYTES ABSOLUTE AUTO 0.55 K/mm3 (0.16-1.47); MONOCYTES PERCENT AUTO 8 % (4-13); Mean Corpuscular HGB 32.1 pg (26.0-34.0); Mean Corpuscular HGB Conc 32.5 g/dL (31.5-36.5); Mean Corpuscular Volume 99 fL (80-100); Mean Platelet Volume 10.8 fL (9.1-12.4); NEUTROPHILS ABSOLUTE AUTO 5.13 K/mm3 (1.96-9.15); NEUTROPHILS PERCENT AUTO 71 % (41-73); Platelet Count 167 K/mm3 (150-400); RDW Coefficient Variation 13.2 % (11.7-14.2); RDW Standard Deviation 47.3 fL (35.1-46.3); White Blood Cell Count 7.19 K/mm3 (4.00-11.30)
[2024-07-16 19:36] LABS: Bilirubin, Urine Neg (Neg); Blood, Urine Neg (Neg); Color, Urine Yellow (P-Yellow); Glucose Qualitative, Urine Neg (Neg); Ketones, Urine Neg (Neg); Leukocyte Esterase, Urine 1+ (Neg); Nitrite, Urine Neg (Neg); Protein, Urine 1+ (Neg); Urobilinogen, Urine NORM (Normal)
[2024-07-16 19:45] LABS: Albumin, Blood 3.2 g/dL (3.4-5.0); Bilirubin, Total 0.2 mg/dL (0.1-1.0); Bun/Creatinine Ratio 28.6 (12.0-20.0); Calcium, Blood 8.4 mg/dL (8.5-10.1); Creatinine, Blood 0.84 mg/dL (0.40-1.00); Globulin, Blood 3.1 g/dL (2.2-4.0); Total Protein, Blood 6.3 g/dL (6.4-8.2)
[2024-07-16 19:50] LABS: Appearance, Urine Hazy (Clear)
[2024-07-16 19:51] LABS: Amorphous Light (0-Heavy); Mucus Light (0-Heavy); Squamous Epithelial Cells Few /hpf (Few)
[2024-07-16 19:57] LABS: Calcium Oxalate Crystals Mod /hpf
[2024-07-16 19:58] LABS: Bacteria Many /hpf; Hyaline Casts 0-2 /lpf (0-2); Red Blood Cells, Urine 0-2 /hpf (0-2); Renal Epithelial Few /hpf (0-Rare)
[2024-07-16 21:45] VITALS: BP 133/77
[2024-07-16] MEDS ORDERED: LevoFLOXacin 750 MG Tab PO ONE (21:50)
[2024-07-16] MEDS ORDERED: LEVO750 PO (21:55)
[2024-07-16] MEDS ORDERED: RX Prepack 2 Tabs Ondansetron ODT 4MG UD ONE (21:55)
== END 2024-07-16 22:36 | disposition home or self-care (01) ==
LOC: ER 18:07
PROVIDERS: Student in an Organized Health Care Education/Training Program
DX: N12 Tubulo-interstitial nephritis, not specified as acute or chronic (principal); R11.2 Nausea with vomiting, unspecified; E86.0 Dehydration; K21.9 Gastro-esophageal reflux disease without esophagitis; Z88.0 Allergy status to penicillin; Z88.8 Allergy status to other drugs, medicaments and biological substances; Z79.899 Other long term (current) drug therapy; Z79.1 Long term (current) use of non-steroidal anti-inflammatories (NSAID); Z79.890 Hormone replacement therapy; Z79.891 Long term (current) use of opiate analgesic
CPT/HCPCS: 51701; 74177; 80053; 81001; 83605; 83735; 85025; 93005; 93010; A9270; J1885; J2405; J7120; Q9967

== ENCOUNTER 2024-12-08 11:43 | Emergency (ER) | payer MEDICARE ==
[~2024-12-08] VITALS: Ht 175.3 cm; Wt 59.0 kg
[~2024-12-08 11:43] MED LIST changes: +LEVO750 PO
[2024-12-08 11:45] VITALS: BP 156/75
== END 2024-12-08 13:15 | disposition home or self-care (01) ==
LOC: ER 11:43
DX: M25.552 Pain in left hip (principal); Z88.0 Allergy status to penicillin; Z88.8 Allergy status to other drugs, medicaments and biological substances; Z79.899 Other long term (current) drug therapy; Z59.89 Other problems related to housing and economic circumstances; W18.30XA Fall on same level, unspecified, initial encounter
CPT/HCPCS: 72170; 73552; 99284-25